=== PATIENT | female | born 1940 | race Caucasian/White ===

== ENCOUNTER → 2017-09-21 12:36 | Outpatient (CLI) | payer MEDICARE, SELFPAY ==
--- NOTE | 2017-09-21 12:50 | DI.RAD.S_ITS ---
PROCEDURE: XR KNEE RT 3V INDICATIONS: ground level fall TECHNIQUE: 3 views of the knee were acquired. COMPARISON: None. FINDINGS: Bones: Mildly displaced comminuted fracture of the mid/inferior patella. No suspicious bony lesions. Soft tissues: Moderate joint effusion. Medial and lateral compartment chondrocalcinosis. IMPRESSION: 1. Patellar fracture. 2. Knee joint effusion. 3. Chondrocalcinosis. Dictated by: Wanda Mirza M.D. on 09/21/2017 at 13:10 Approved by: Wanda Mirza M.D. on 09/21/2017 at 13:10
== END ==
PROVIDERS: Family Provider Naturopath; PCP Family Medicine; Visit Provider Physician Assistant
DX: S82.001A Unspecified fracture of right patella, initial encounter for closed fracture (principal); M25.461 Effusion, right knee; M11.261 Other chondrocalcinosis, right knee
CPT/HCPCS: 73562

== ENCOUNTER → 2017-11-20 10:01 | Outpatient (CLI) | payer MEDICARE, SELFPAY ==
[2017-11-20 10:55] LABS: Add Manual Diff / Slide Review NO; Basophils Percent Auto 0.7 % (0-2); Eosinophils Percent Auto 2.5 % (2-4); Hematocrit 39.4 % (36-46); Hemoglobin 13.3 g/dL (12.0-16.0); Lymphocytes Percent Auto 22.1 % (25-40); Mean Corpuscular HGB Conc 33.7 % (30-36); Mean Corpuscular Hemoglobin 34.5 PG (26-34); Mean Corpuscular Volume 102.5 fL (80-100); Monocytes Percent Auto 12.3 % (3-14); Neutrophils Absolute Auto 3400 /uL (3000-5900); Neutrophils Percent Auto 62.4 % (50-75); Platelet Count 154 X10^3/uL (150-400); Red Blood Cell Count 3.85 X10^6/uL (4.0-5.2); Red Cell Distribution Width 13.3 % (11.6-14.8); White Blood Cell Count 5.4 X10^3/uL (4.5-11.0)
[2017-11-20 11:01] LABS: Alanine Aminotransferase 29 IU/L (9-52); Albumin 4.2 g/dL (3.5-5.0); Albumin Globulin Ratio 1.6 (1.0-2.8); Alkaline Phosphatase 72 U/L (38-126); Aspartate Aminotransferase 32 IU/L (14-36); BUN Creatinine Ratio 36.7 (6-22); Bilirubin Total 0.5 mg/dL (0.2-1.3); Blood Urea Nitrogen 22 mg/dL (7-17); Calcium 9.7 mg/dL (8.4-10.2); Carbon Dioxide 38 mmol/L (22-32); Chloride 100 mmol/L (98-107); Estimated Glomerular Filt Rate > 60.0 mL/min (>60); Globulin 2.7 g/dL (1.7-4.1); Glucose 85 mg/dL (80-110); HEMOLYSIS < 15 (0-50); Potassium 4.1 mmol/L (3.4-5.1); Sodium 143 mmol/L (137-145); Total Protein 6.9 g/dL (6.3-8.2)
[2017-11-20 12:21] LABS: Cancer Antigen 125 6 U/mL (0-35)
== END ==
PROVIDERS: Family Provider Naturopath; Visit Provider Nurse Practitioner Gerontology
DX: C56.9 Malignant neoplasm of unspecified ovary (principal)
CPT/HCPCS: 36415; 80053; 85025; 86304

== ENCOUNTER → 2017-11-21 12:58 | Outpatient (CLI) | payer MEDICARE, SELFPAY ==
--- NOTE | 2017-11-21 13:00 | DI.CT.S_ITS ---
PROCEDURE: CT CHEST ABD PEL W CON INDICATIONS: Ovarian cancer TECHNIQUE: After the administration of oral and intravenous contrast, 5 mm thick sections acquired from the lung apices to the symphysis. 5 mm coronal and sagittal reformats were performed, with additional 7 mm coronal MIP reformats through the lungs. For radiation dose reduction, the following was used: automated exposure control, adjustment of mA and/or kV according to patient size. COMPARISON: [facility], CT, CHEST/ABD/PEL WITH CONTRAST, 06/07/2017, 10:36. FINDINGS: Image quality: Excellent. CHEST: Lungs and pleura: No acute consolidation. There is scattered subsegmental atelectasis and/or scarring No definite interval change in the left lower lobe and right middle lobe partial groundglass subpleural nodules since the prior study dated 06/07/17. No pleural effusions or pneumothorax. Central and peripheral airways appear patent and normal in caliber. Mediastinum: Heart size is normal. No pericardial effusion. No mediastinal or hilar adenopathy by size criteria. Thoracic aorta and central pulmonary arteries are normal in size. Esophagus is normal in caliber. No hiatal hernia. Chest wall: No axillary or supraclavicular adenopathy by size criteria. Thyroid gland unremarkable. ABDOMEN: Solid organs: Liver is normal in size and enhancement. Gallbladder grossly unremarkable and no rib is only a small. Biliary system is non dilated. Pancreas enhances normally. Spleen is normal in size and enhancement. No adrenal nodules. Kidneys demonstrate normal size and enhancement, without hydronephrosis. Peritoneum and bowel: Bowel loops demonstrate normal wall thickness and caliber. Surgical bowel anastomosis seen in the right abdomen. No free fluid or air. Nodes and vessels: No retroperitoneal or mesenteric adenopathy by size criteria. Aorta and inferior vena cava are normal in size. Miscellaneous: No ventral hernias. PELVIS: Genitourinary: Bladder wall thickness is normal. Miscellaneous: No inguinal hernias or adenopathy. Bones: No suspicious bony lesions. No vertebral body compression fractures. IMPRESSION: Overall, stable examination without evidence of active metastatic disease. Redemonstration of bibasilar subcentimeter, partial groundglass pulmonary nodules with no interval change. Recommend continued attention on subsequent studies. Dictated by: Nate Roman M.D. on 11/21/2017 at 16:06 Approved by: Nate Roman M.D. on 11/21/2017 at 16:31
== END ==
PROVIDERS: Family Provider Naturopath; PCP Family Medicine; Visit Provider Nurse Practitioner Gerontology
DX: C56.9 Malignant neoplasm of unspecified ovary (principal); R91.8 Other nonspecific abnormal finding of lung field; Z90.89 Acquired absence of other organs
CPT/HCPCS: 71260; 74177; Q9967

== ENCOUNTER → 2019-03-04 09:52 | Outpatient (CLI) | payer MEDICARE, SELFPAY ==
[2019-03-04 10:46] LABS: Hematocrit 40.3 % (36-46); Hemoglobin 13.9 g/dL (12.0-16.0); Mean Corpuscular HGB Conc 34.5 % (30-36); Mean Corpuscular Hemoglobin 34.3 PG (26-34); Mean Corpuscular Volume 99.4 fL (80-100); Platelet Count 152 X10^3/uL (150-400); Red Blood Cell Count 4.06 X10^6/uL (4.0-5.2); Red Cell Distribution Width 12.4 % (11.6-14.8); White Blood Cell Count 5.1 X10^3/uL (4.5-11.0)
[2019-03-04 11:12] LABS: Alanine Aminotransferase 23 IU/L (<35); Albumin 4.3 g/dL (3.5-5.0); Albumin Globulin Ratio 1.7 (1.0-2.8); Alkaline Phosphatase 82 U/L (38-126); Aspartate Aminotransferase 35 IU/L (14-36); BUN Creatinine Ratio 35.7 (6-22); Bilirubin Total 0.6 mg/dL (0.2-1.3); Blood Urea Nitrogen 25 mg/dL (7-17); Calcium 9.8 mg/dL (8.4-10.2); Carbon Dioxide 35 mmol/L (22-32); Chloride 99 mmol/L (98-107); Cholesterol 215 mg/dL (140-199); Estimated Glomerular Filt Rate > 60.0 mL/min (>60); Globulin 2.6 g/dL (1.7-4.1); Glucose 79 mg/dL (80-110); HDL Cholesterol 91 mg/dL (40-60); HEMOLYSIS < 15 (0-50); LDL Cholesterol Calculated 110 mg/dL (<100); Potassium 5.1 mmol/L (3.4-5.1); Sodium 139 mmol/L (137-145); Total Protein 6.9 g/dL (6.3-8.2); Triglycerides 69 mg/dL (35-150)
[2019-03-04 11:41] LABS: TSH w/ Reflex to FT4 3.89 uIU/mL (0.47-4.68)
[2019-03-04 12:01] LABS: Vitamin B12 995 pg/mL (239-931)
== END ==
PROVIDERS: PCP Internal Medicine; Visit Provider Internal Medicine
DX: Z08 Encounter for follow-up examination after completed treatment for malignant neoplasm (principal); R41.3 Other amnesia; E78.5 Hyperlipidemia, unspecified
CPT/HCPCS: 36415; 80053; 80061; 82607; 84443; 85027; 86592

== ENCOUNTER → 2019-03-13 12:37 | Outpatient (CLI) | payer MEDICARE, SELFPAY ==
--- NOTE | 2019-03-13 | DI.MRI.S_ITS ---
PROCEDURE: MR HEAD/BRAIN WO CON INDICATIONS: Unspecified dementia with behavioral disturbance TECHNIQUE: Non-contrast axial T1 spin echo, axial T2 fast spin echo, sagittal and axial FLAIR, coronal T2 fast spin echo, axial gradient echo, axial diffusion and ADC through the brain. COMPARISON: None. FINDINGS: Image quality: Excellent. CSF spaces: Ventricles appear symmetric in size and shape. Basal cisterns are patent. No extra-axial fluid collections. Brain: No intracranial bleeds or mass effects. There is cerebral volume loss for age. There are periventricular and deep white matter chronic small vessel ischemic changes. Brainstem appears normal. Diffusion-weighted images show no acute ischemic insults. No chronic ischemic insults. Normal intravascular flow voids are present. Skull and face: Calvarial bone marrow is normal in signal. Orbits are normal. Sinuses: There is mild maxillary sinus mucosal thickening bilaterally. Sinuses and mastoids are otherwise clear. IMPRESSION: 1. Mild volume loss and small vessel ischemic disease. 2. No acute process. No recent infarct. 3. Mild maxillary sinus mucosal disease bilaterally. Dictated by: Wanda Mirza M.D. on 03/13/2019 at 14:51 Approved by: Wanda Mirza M.D. on 03/13/2019 at 14:52
== END ==
PROVIDERS: PCP Internal Medicine; Visit Provider Internal Medicine
DX: F03.91 Unspecified dementia, unspecified severity, with behavioral disturbance (principal); J32.0 Chronic maxillary sinusitis
CPT/HCPCS: 70551

== ENCOUNTER → 2019-04-20 12:12 | Outpatient (CLI) | payer MEDICARE, SELFPAY ==
--- NOTE | 2019-04-20 12:15 | DI.MG.S_ITS ---
BILATERAL DIGITAL SCREENING MAMMOGRAM 3D/2D WITH CAD: 04/20/2019 CLINICAL: Routine screening. Family history of breast cancer. Comparison is made to exams dated: 04/19/2017 mammogram, 01/07/2015 mammogram, and 11/26/2012 mammogram - [facility]. The tissue of both breasts is heterogeneously dense. This may lower the sensitivity of mammography. Current study was also evaluated with a Computer Aided Detection (CAD) system. There are benign calcifications in both breasts. No significant masses, calcifications, or other findings are seen in either breast. There has been no significant interval change. IMPRESSION: There is no mammographic evidence of malignancy. A 1 year screening mammogram is recommended. This exam was interpreted at Station ID: [id number]. NOTE: For mammograms, a report in lay terms will be sent to the patient. Approximately 15% of breast malignancies will not be visualized mammographically. In the management of a palpable breast mass, a negative mammogram must not discourage biopsy of a clinically suspicious lesion. Electronically Signed By: Mike amaya/ariadne:04/20/2019 19:02:04 letter sent: Normal Exam ACR BI-RADS Category 2: Benign Finding(s) 3342F
== END ==
PROVIDERS: PCP Internal Medicine; Referring Provider Internal Medicine; Visit Provider Internal Medicine
DX: Z12.31 Encounter for screening mammogram for malignant neoplasm of breast (principal); Z80.3 Family history of malignant neoplasm of breast
CPT/HCPCS: 77063; 77067

== ENCOUNTER → 2019-07-10 12:34 | Outpatient (CLI) | payer MEDICARE, SELFPAY ==
[2019-07-10 12:58] LABS: Add Manual Diff / Slide Review NO; Basophils Absolute Auto 100 /uL (0-100); Basophils Percent Auto 0.9 % (0-2); Eosinophils Absolute Auto 200 /uL (0-450); Hematocrit 40.4 % (36-46); Hemoglobin 14.2 g/dL (12.0-16.0); Lymphocytes Absolute Auto 800 /uL (1100-4500); Lymphocytes Percent Auto 13.6 % (25-40); Mean Corpuscular HGB Conc 35.1 % (30-36); Mean Corpuscular Hemoglobin 34.6 PG (26-34); Mean Corpuscular Volume 98.4 fL (80-100); Monocytes Absolute Auto 800 /uL (0-900); Monocytes Percent Auto 14.3 % (3-14); Neutrophils Absolute Auto 3900 /uL (1500-7000); Neutrophils Percent Auto 68.2 % (50-75); Platelet Count 157 X10^3/uL (150-400); Red Cell Distribution Width 12.8 % (11.6-14.8); White Blood Cell Count 5.7 X10^3/uL (4.5-11.0)
[2019-07-10 13:05] LABS: Alanine Aminotransferase 20 IU/L (<35); Albumin 4.2 g/dL (3.5-5.0); Albumin Globulin Ratio 1.4 (1.0-2.8); Alkaline Phosphatase 72 U/L (38-126); Aspartate Aminotransferase 31 IU/L (14-36); BUN Creatinine Ratio 39.7 (6-22); Bilirubin Total 0.4 mg/dL (0.2-1.3); Blood Urea Nitrogen 25 mg/dL (7-17); Calcium 9.5 mg/dL (8.4-10.2); Carbon Dioxide 30 mmol/L (22-32); Chloride 101 mmol/L (98-107); Estimated Glomerular Filt Rate > 60.0 mL/min (>60); Glucose 103 mg/dL (80-110); HEMOLYSIS < 15 (0-50); Potassium 4.6 mmol/L (3.4-5.1); Sodium 138 mmol/L (137-145); Total Protein 7.2 g/dL (6.3-8.2)
== END ==
PROVIDERS: PCP Internal Medicine; Referring Provider Internal Medicine Hematology & Oncology; Visit Provider Internal Medicine Hematology & Oncology
DX: C56.9 Malignant neoplasm of unspecified ovary (principal)
CPT/HCPCS: 36415; 80053; 85025; 86304

== ENCOUNTER → 2019-07-22 12:36 | Outpatient (CLI) | payer MEDICARE, SELFPAY ==
--- NOTE | 2019-07-22 12:39 | DI.RAD.S_ITS ---
PROCEDURE: FL CATHETER PATENCY COMPARISON: None. INDICATIONS: No blood return from port FINDINGS: Iodinated nonionic contrast was utilized through the Port-A-Cath port, with free antegrade flow but absence of retrograde aspiration. The catheter shows no evidence of fracture or leakage, the Port-A-Cath hub also appears normal over the course of this study. IMPRESSION: Normal positioning of the Port-A-Cath tip, free antegrade flow of contrast was observed, no leakage or evidence of catheter fracture is found. The etiology of the inability to aspirate through this pathway likely is a fibrin sheath that has developed at the tip mechanically producing a one way valve. Dictated by: Awais Youngblood M.D. on 07/22/2019 at 13:59 Approved by: Awais Youngblood M.D. on 07/22/2019 at 14:00
== END ==
PROVIDERS: PCP Internal Medicine; Referring Provider Internal Medicine Hematology & Oncology; Visit Provider Internal Medicine Hematology & Oncology
DX: Z45.2 Encounter for adjustment and management of vascular access device (principal); C56.9 Malignant neoplasm of unspecified ovary
CPT/HCPCS: 76000

== ENCOUNTER → 2019-08-29 15:53 | Outpatient (CLI) | payer MEDICARE, SELFPAY ==
[2019-08-30 22:56] LABS: COVID19 Sendout Not Detected (Not Detect)
== END ==
PROVIDERS: PCP Internal Medicine; Visit Provider Physician Assistant
DX: Z01.812 Encounter for preprocedural laboratory examination (principal)
CPT/HCPCS: 87635

== ENCOUNTER 2019-09-01 08:39 | Day surgery (SDC) | payer MEDICARE, SELFPAY ==
[2019-08-25 08:43] VITALS: BMI 17.3
[2019-09-01] VITALS (11 sets, daily range): BP systolic 87–141; BP diastolic 45–67; PULSE 54–62; RESP 10–20; TEMP 36.1–36.6; O2SAT 56–98; BMI 17.3
[2019-09-01] MEDS: LACTATED RINGERS 1,000 ML 100 ML IV (09:23)
--- NOTE | 2019-09-01 10:01 | PM.PREOP ---
Pre-operative Note COVID-19 COVID-19 status: Negative Interval Note History & Physical reviewed/Exam performed by Physician: Yes Changes to H&P: No
[2019-09-01] MEDS: CEFAZOLIN 2 GM/100 ML FROZ.PIGGY IV (10:10)
--- NOTE | 2019-09-01 10:36 | SUR.OPER ---
Supine on padded OR bed, head on pillow, arm padded and tucked at side, legs uncrossed, safety belt at thigh, tape over blanket over lower legs .
[2019-09-01] MEDS: BUPIVACAINE 0.25% (PF) VIAL 30 ML INJ (10:46)
--- NOTE | 2019-09-01 10:54 | PM.OP.1 ---
Operative Date/Time/Diagnoses Date of procedure: 09/01/19 Time of procedure: 10:54 Pre-op diagnosis: ovarian cancer Post-op diagnosis: same Procedure & Clinicians Procedure: removal port a cath Same procedure as scheduled: Yes Indications: 78 y.o woman with ovarian cancer with a port a cath now no longer functioning Surgeon: Bebeto Chahal Anesthesia Type: General Operative Notes Findings: intact catheter Estimated Blood Loss (mL): 10 Procedure in detail: Patient was brought to the operating room placed supine on table. Bilateral lower extremity compressive devices were applied. General anesthesia was induced and she was intubated with an LMA. She was then prepped and draped in usual sterile fashion. Time-out was performed ensure the correct patient procedure necessary equipment within the operating room. She received 2 g of Ancef prior to incision. Skin was infiltrated with 0.25% bupivicaine. Incision made in left chest wall through prior scar. Port was carefully dissected out from the chest wall adhesions. The entry site of the catheter was closd with vicryl suture in figure 8 fashion as the catheter was withdrawn. The catheter was inspected and intact. Subcutaneous pocket was irrigated and checked for hemostasis. The subcutaneous tissues were reapproximated with the 3 0 Vicryl and then skin closed with 4-0 Monocryl. The skin was sealed with Dermabond. Patient tolerated procedure well. The sponge and instrument count at the end operation was correct. Patient emerged from general anesthesia was extubated and taken to the postoperative care unit in stable condition Complications: none Post-operative Condition: stable Disposition: same day surgery
--- NOTE | 2019-09-01 16:02 | SUR.PHASEII ---
Late entry: Pt ready to go, dressed, ride called and pt left in stable condition.
== END 2019-09-01 12:25 | disposition home or self-care (01) ==
PROVIDERS: PCP Internal Medicine; Referring Provider Surgery; Visit Provider Surgery
PROC: (CPT 36590; principal; 2019-09-01 09:45)
DX: Z45.2 Encounter for adjustment and management of vascular access device (principal); Z85.43 Personal history of malignant neoplasm of ovary
CPT/HCPCS: 36590; J0690; J1100; J2405; J2704; J3010

== ENCOUNTER → 2019-10-06 14:26 | Outpatient (CLI) | payer MEDICARE, SELFPAY ==
[2019-10-07 09:55] LABS: COVID19 Sendout Not Detected (Not Detect)
== END ==
PROVIDERS: PCP Internal Medicine; Visit Provider Physician Assistant
DX: Z11.59 Encounter for screening for other viral diseases (principal)
CPT/HCPCS: 87635

== ENCOUNTER → 2020-03-15 14:15 | Outpatient (CLI) | payer OTHER, SELFPAY | PROVIDERS: PCP Internal Medicine; Referring Provider Internal Medicine; Visit Provider Internal Medicine | DX: M85.851 Other specified disorders of bone density and structure, right thigh (principal); Z78.0 Asymptomatic menopausal state; Z85.43 Personal history of malignant neoplasm of ovary; Z82.62 Family history of osteoporosis; Z87.891 Personal history of nicotine dependence | CPT/HCPCS: 77080 ==

== ENCOUNTER → 2020-03-31 14:46 | Outpatient (CLI) | payer OTHER, SELFPAY ==
[2020-03-31 16:44] LABS: C-Reactive Protein Quant < 0.5 mg/dL (<1.0)
== END ==
PROVIDERS: PCP Internal Medicine; Referring Provider Internal Medicine; Visit Provider Internal Medicine
DX: E78.5 Hyperlipidemia, unspecified (principal)
CPT/HCPCS: 36415; 86140

== ENCOUNTER → 2020-05-17 16:18 | Outpatient (CLI) | payer OTHER, SELFPAY | PROVIDERS: PCP Internal Medicine; Visit Provider Physician Assistant | DX: R30.9 Painful micturition, unspecified (principal) | CPT/HCPCS: 87086 ==

== ENCOUNTER → 2020-05-26 16:48 | Outpatient (CLI) | payer OTHER, SELFPAY ==
--- NOTE | 2020-05-26 16:49 | DI.MG.S_ITS ---
BILATERAL DIGITAL SCREENING MAMMOGRAM 3D/2D WITH CAD: 05/26/2020 CLINICAL: Routine screening. Family history of breast cancer. Comparison is made to exams dated: 04/20/2019 mammogram, 04/19/2017 mammogram, 01/07/2015 mammogram, and 11/26/2012 mammogram - [facility]. The tissue of both breasts is heterogeneously dense. This may lower the sensitivity of mammography. Current study was also evaluated with a Computer Aided Detection (CAD) system. There are benign calcifications in both breasts. No significant masses, calcifications, or other findings are seen in either breast. There has been no significant interval change. IMPRESSION: BENIGN There is no mammographic evidence of malignancy. A 1 year screening mammogram is recommended. This exam was interpreted at Station ID: [id number]. NOTE: For mammograms, a report in lay terms will be sent to the patient. Approximately 15% of breast malignancies will not be visualized mammographically. In the management of a palpable breast mass, a negative mammogram must not discourage biopsy of a clinically suspicious lesion. Electronically Signed By: Mike amaya/ariadne:05/27/2020 07:26:03 letter sent: Normal Exam ACR BI-RADS Category 2: Benign Finding(s) 3342F
== END ==
PROVIDERS: PCP Internal Medicine; Referring Provider Internal Medicine; Visit Provider Internal Medicine
DX: Z12.31 Encounter for screening mammogram for malignant neoplasm of breast (principal); Z80.3 Family history of malignant neoplasm of breast
CPT/HCPCS: 77063; 77067

== ENCOUNTER → 2020-06-08 13:41 | Outpatient (CLI) | payer OTHER, SELFPAY ==
[2020-06-08 15:50] LABS: COVID19 -Nasal RAPID Negative (Negative)
== END ==
PROVIDERS: PCP Internal Medicine; Visit Provider Family Medicine Sleep Medicine
DX: Z20.822 Contact with and (suspected) exposure to COVID-19 (principal)
CPT/HCPCS: 87635; C9803

== ENCOUNTER → 2021-05-29 15:00 | Outpatient (CLI) | payer OTHER, SELFPAY ==
--- NOTE | 2021-05-29 15:02 | DI.MG.S_ITS ---
BILATERAL DIGITAL SCREENING MAMMOGRAM 3D/2D WITH CAD: 05/29/2021 CLINICAL: Routine screening. Family history of breast cancer. Comparison is made to exams dated: 05/26/2020 mammogram, 04/20/2019 mammogram, and 04/19/2017 mammogram - [facility]. The tissue of both breasts is heterogeneously dense. This may lower the sensitivity of mammography. Current study was also evaluated with a Computer Aided Detection (CAD) system. There are benign calcifications in both breasts. No significant masses, calcifications, or other findings are seen in either breast. There has been no significant interval change. IMPRESSION: BENIGN There is no mammographic evidence of malignancy. A 1 year screening mammogram is recommended. This exam was interpreted at Station ID: [id number]. NOTE: For mammograms, a report in lay terms will be sent to the patient. Approximately 15% of breast malignancies will not be visualized mammographically. In the management of a palpable breast mass, a negative mammogram must not discourage biopsy of a clinically suspicious lesion. Electronically Signed By: Edel silva/ariadne:05/30/2021 08:02:38 letter sent: Normal Exam ACR BI-RADS Category 2: Benign Finding(s) 3342F
== END ==
PROVIDERS: PCP Internal Medicine; Referring Provider Internal Medicine; Visit Provider Internal Medicine
DX: Z12.31 Encounter for screening mammogram for malignant neoplasm of breast (principal); Z80.3 Family history of malignant neoplasm of breast
CPT/HCPCS: 77063; 77067

== ENCOUNTER → 2022-04-05 17:49 | Outpatient (CLI) | payer OTHER, SELFPAY ==
--- NOTE | 2022-04-05 17:54 | DI.RAD.S_ITS ---
PROCEDURE: XR HAND RT MIN 3V INDICATIONS: Middle Finger/hand pain TECHNIQUE: 3 views of the hand(s) acquired. COMPARISON: None. FINDINGS: Bones: No fractures or dislocations. Osteoarthritic changes are noted throughout right hand and wrist. No bony erosive changes. Carpal bones are normally aligned. No suspicious bony lesions. Soft tissues: Soft tissue swelling over volar aspect of 3rd proximal phalangeal shaft and 3rd PIP joint is seen. No suspicious soft tissue calcifications. IMPRESSION: No acute right hand fracture or dislocation. Soft tissue swelling over volar aspect of 3rd digit as above. No gross bony erosive changes. 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 Dictated by: Bruno Conde M.D. on 04/06/2022 at 8:52 Approved by: Bruno Conde M.D. on 04/06/2022 at 8:53
== END ==
PROVIDERS: Referring Provider Nurse Practitioner Family; Visit Provider Nurse Practitioner Family
DX: M19.041 Primary osteoarthritis, right hand (principal); M19.031 Primary osteoarthritis, right wrist; M79.89 Other specified soft tissue disorders
CPT/HCPCS: 73130

== ENCOUNTER → 2022-04-06 13:36 | Outpatient (CLI) | payer OTHER, SELFPAY ==
--- NOTE | 2022-04-06 | DI.MG.S_ITS ---
UNILATERAL RIGHT DIGITAL DIAGNOSTIC MAMMOGRAM 3D/2D: 04/06/2022 CLINICAL: Right breast lump. Comparison is made to exams dated: 05/29/2021 mammogram, 05/26/2020 mammogram, 04/20/2019 mammogram, and 04/19/2017 mammogram - [facility]. The right breast is heterogeneously dense, which may obscure small masses (category c / 51-75% glandular tissue). No significant masses, calcifications, or other findings are seen in the breast. IMPRESSION: INCOMPLETE: NEEDS ADDITIONAL IMAGING EVALUATION There is no abnormality seen in the right breast to correspond with the palpable abnormality, however, ultrasound is recommended. Based on the Tyrer Cuzick model (a risk assessment model) the patient's lifetime risk is 2.2% and her 10 year risk is 0.0%. According to the ACR, ACS, and NCCN guidelines, an annual breast MRI exam along with mammogram is recommended if the patient's lifetime risk is 20% or greater. This exam was interpreted at Station ID: [id number]. NOTE: For mammograms, a report in lay terms will be sent to the patient. Approximately 15% of breast malignancies will not be visualized mammographically. In the management of a palpable breast mass, a negative mammogram must not discourage biopsy of a clinically suspicious lesion. Electronically Signed By: Serafin Motta M.D. ar/:04/06/2022 16:08:35 ACR BI-RADS Category 0: Incomplete 3340F
--- NOTE | 2022-04-06 | DI.US.S_ITS ---
LIMITED ULTRASOUND OF RIGHT BREAST: 04/06/2022 CLINICAL: Palpable right breast lump by physician. Comparison is made to exams dated: 04/06/2022 mammogram, 05/29/2021 mammogram, 05/26/2020 mammogram, 04/20/2019 mammogram, and 04/19/2017 mammogram - [facility]. Real-time ultrasound of the right breast 12 o'clock region was performed. Perry scale images of the real-time examination were reviewed. No significant abnormalities were seen sonographically in the right breast. IMPRESSION: NEGATIVE There is no sonographic evidence of malignancy. There is no abnormality seen in the right breast to correspond with the palpable abnormality, however, clinical followup is recommended. Return to annual mammogram screening schedule is recommended. Future imaging is recommended as follows: 05/30/2022 screening mammogram. This exam was interpreted at Station ID: [id number]. Electronically Signed By: Serafin graham/ariadne:04/06/2022 16:10:06 letter sent: Clinical Evaluation Ultrasound BI-RADS: 1 Negative
== END ==
PROVIDERS: Referring Provider Internal Medicine; Visit Provider Internal Medicine
DX: N63.11 Unspecified lump in the right breast, upper outer quadrant (principal); R92.2 Inconclusive mammogram
CPT/HCPCS: 76642; 77065; G0279

== ENCOUNTER → 2022-06-22 13:08 | Outpatient (CLI) | payer OTHER, SELFPAY | PROVIDERS: Visit Provider Registered Nurse | DX: R35.0 Frequency of micturition (principal); N39.0 Urinary tract infection, site not specified | CPT/HCPCS: 87086; 87210 ==

== ENCOUNTER 2022-08-30 18:44 | Emergency (ER) | payer OTHER, SELFPAY ==
[2022-08-30 19:30] VITALS: BP 187/80; PULSE 60; RESP 18; TEMP 36.4; O2SAT 98; BMI 18.6
--- NOTE | 2022-08-30 19:39 | DI.RAD.S_ITS ---
PROCEDURE: XR NASAL BONES MIN 3V INDICATIONS: fell and hit face on pavement TECHNIQUE: 3 views of the nasal bones acquired. COMPARISON: None. FINDINGS: Bones: No displaced fracture identified.. There is slight rightward deviation of the nasal septum. Normal nasociliary nerve grooves are noted. Soft tissues: No suspicious soft tissue calcifications. IMPRESSION: 1. No displaced nasal bone fracture identified. Dictated by: Michael Abdi M.D. on 08/30/2022 at 21:00 Approved by: Michael Abdi M.D. on 08/30/2022 at 21:05
--- NOTE | 2022-08-30 19:40 | DI.RAD.S_ITS ---
PROCEDURE: XR WRIST RT MIN 3V INDICATIONS: fell and injured wrist TECHNIQUE: 4 views of the wrist were acquired. COMPARISON: None. FINDINGS: Bones: No displaced fractures or dislocations. No suspicious bony lesions. Scaphoid view: The scaphoid appears intact. Soft tissues: No suspicious soft tissue calcifications. IMPRESSION: 1. No displaced fracture or dislocation. Dictated by: Michael Abdi M.D. on 08/30/2022 at 21:05 Approved by: Michael Abdi M.D. on 08/30/2022 at 21:06
[2022-08-30 21:40] VITALS: PULSE 68; O2SAT 99
[2022-08-30 21:41] VITALS: BP 175/74; PULSE 66; O2SAT 98
--- NOTE | 2022-08-30 21:55 | ED_ITS ---
HPI - General Adult General Chief complaint: Trauma Stated complaint: Fall, No thinners Time Seen by Provider: 08/30/22 21:41 Source: patient Mode of arrival: Wheelchair History of Present Illness HPI narrative: Patient is an 81-year-old female who is here for evaluation of injuries that she sustained when she tripped over an uneven sidewalk falling forward and hitting her face on the ground. There was no loss of consciousness. She is not on blood thinners. She sustained some abrasions to her face in has wrist discomfort. She has been able to get up and walk afterwards. No neck pain. No vision changes. No dental discomfort. She does have a cut to her upper lip. Related Data Home Medications Medication Instructions Recorded Confirmed varsha (Zingiber officinalis) 550 1 cap PO BID ##0 09/11/16 01/19/21 mg capsule cranberry 500 mg capsule 500 mg PO DAILY 08/03/19 01/19/21 Bladder Wrack 1 tab PO DAILY 04/19/20 01/19/21 ashwagantha 1 tab PO DAILY 04/19/20 01/19/21 Brain Formula 1 tab PO BID 10/07/20 01/19/21 ascorbic acid (vitamin C) 500 mg 500 mg PO BID ##0 10/07/20 01/18/22 tablet cholecalciferol (vitamin D3) 25 25 mcg PO BID 10/07/20 01/19/21 mcg (1,000 unit) chewable tablet (Vitamin D3) coenzyme Q10 30 mg capsule (CoQ-10) 100 mg PO DAILY #0 caps 10/07/20 01/19/21 jlasisszwqsb-uwxjovfl-xcfqsa 2 tab PO DAILY 10/07/20 01/19/21 tablet (Multivitamin 50 Plus tablet) escitalopram oxalate 10 mg tablet 10 mg PO DAILY 01/19/21 01/19/21 (Lexapro) turmeric (bulk) 95 % powder 1 ea miscellaneous DAILY 01/19/21 01/19/21 (Curcumin) 3B Cande 05/16/21 05/16/21 [place] 2 cap PO DAILY 05/16/21 [CALMS FORTE] 6 tab PO DAILY ##0 05/16/21 melatonin 5 mg tablet 20 mg PO BEDTIME 05/16/21 05/16/21 rosuvastatin 10 mg tablet (Crestor) 10 mg PO DAILY 05/16/21 05/16/21 3B CANDE 11/15/21 11/15/21 Allergies Allergy/AdvReac Type Severity Reaction Status Date / Time ciprofloxacin [From CIPRO] Allergy Mild DIARRHEA Verified 05/16/21 10:42 Sulfa (Sulfonamide Allergy Mild IRRABILITY Verified 05/16/21 10:42 Antibiotics) [SULFA (SULFONAMIDE ANTIBIOTICS)] lorazepam [LORAZEPAM] AdvReac Unknown N/V Verified 05/16/21 10:42 Review of Systems Constitutional Constitutional: Reports system reviewed and no additional complaints, except as documented Eyes Eyes: Reports system reviewed and no additional complaints, except as documented ENT Ears, Nose, Mouth, and Throat: Reports system reviewed and no additional complaints, except as documented Integumentary/Breasts Skin/Breast: Reports system reviewed and no additional complaints, except as documented Neurologic Neurologic: Reports system reviewed and no additional complaints, except as documented Hematologic/Lymphatic On Anticoagulants: No Patient History Medical History Arthritis Disseminated ovarian cancer Dysuria Edema Excessive daytime sleepiness Fatigue due to sleep pattern disturbance History of anemia History of ovarian cancer Hypoglycemia Insomnia due to medical condition Malignant ascites (01/09/17) Mild cognitive disorder Obstructive sleep apnea, adult Pneumonia Restless legs syndrome (RLS) Surgical History History of cataract removal with insertion of prosthetic lens History of cataract removal with insertion of prosthetic lens History of surgery (2018) History of tonsillectomy Status post hysterectomy Family History Brother Age: 82 Precancerous skin lesion Uncomplicated asthma, unspecified asthma severity Insomnia Grandmother Osteoporosis Mother Cancer Heart disease Essential hypertension High cholesterol Mental health problem Hypertension Depression Anxiety Dementia Father Heart disease Social History household members: spouse Smoking Status: Former smoker alcohol intake: current Smoking Status: Former smoker alcohol intake frequency: 0-2 drinks per day Substance Use Type: does not use Exam Initial Vital Signs Initial Vital Signs: Vital Signs Temperature 97.5 F L 08/30/22 19:30 Pulse Rate 60 08/30/22 19:30 Respiratory Rate 18 08/30/22 19:30 Blood Pressure 187/80 H 08/30/22 19:30 Pulse Oximetry 98 08/30/22 19:30 Oxygen Delivery Method Room Air 08/30/22 19:30 HENMT Nose: nares normal, No epistaxis and No nasal discharge Face and sinus: abrasion Mouth: tongue normal and lip abnormal (Cut to upper lip) Teeth and gingiva: dentition normal Eyes Other: Contusion around right eye Resp Effort & Inspection: normal respiratory effort Cardio Rate: regular rate Back/Spine/Pelvis Cervical Spine: No cervical spinal tenderness Skin Other: Patient with multiple abrasions on the right side of her face to include around her right eye and on the bridge of her nose also on her chin. She also has bruising to her right wrist. Neuro General: patient alert, patient awake, patient oriented x3 and moves all extremities Extrem Other: Shoulder and elbow unremarkable. She can flex and extend her right wrist. Her pelvis is stable. Lower extremities unremarkable. Procedures Laceration Repair Laceration 1: Site: lip Side (If applicable): right Size (cm): 0.5 Description: linear Depth: simple, single layer Local Anesthetic: lidocaine 1% Amount of anesthesia used (mL): 2 Pre-repair: wound explored Skin layer closed with: other (Chromic) Skin layer suture size: 5-0 Number of sutures: 2 Technique: simple, interrupted Scores GCS [place] coma scale eye opening: Spontaneous [place] coma scale verbal response: Orientated Dary coma scale motor response: Obey commands [place] coma scale total score: 15 Nexus Score for C-Spine Focal Neurologic deficit present: No Midline spinal tenderness present: No Altered level of conciousness present: No Intoxication present: No Distracting Injury Present: No Nexus Criteria for C-spine: 0 Course Orders Ordered: ED Orders 08/30/22 19:39 XR nasal bones min 3V Stat 08/30/22 19:40 XR wrist RT min 3V Stat Vital Signs Vital signs: Vital Signs - 8 hr 08/30/22 19:30 08/30/22 21:40 08/30/22 21:41 Temperature 97.5 F L Pulse Rate 60 68 Respiratory Rate 18 Blood Pressure 187/80 H 175/74 H Pulse Oximetry 98 99 Oxygen Delivery Method Room Air 08/30/22 21:41 08/30/22 22:00 Temperature Pulse Rate 66 64 Respiratory Rate Blood Pressure Pulse Oximetry 98 98 Oxygen Delivery Method Medical Decision Making Imaging Data Nasal bone x-ray: Radiologist's Impression: PROCEDURE:? XR NASAL BONES MIN 3V ? INDICATIONS:? fell and hit face on pavement ? TECHNIQUE:? 3 views of the nasal bones acquired.? ? COMPARISON:? None. ? FINDINGS:? ? Bones:? No displaced fracture identified..? There is slight rightward deviation of the nasal septum.? Normal nasociliary nerve grooves are noted.? ? Soft tissues:? No suspicious soft tissue calcifications.? ? IMPRESSION:? ? 1. No displaced nasal bone fracture identified. Extremity x-ray #1: Radiologist's Impression: PROCEDURE:? XR WRIST RT MIN 3V ? INDICATIONS: fell and injured wrist ? TECHNIQUE:? 4 views of the wrist were acquired.? ? COMPARISON:? None. ? FINDINGS:? ? Bones:? No displaced fractures or dislocations.? No suspicious bony lesions.? ? Scaphoid view:? The scaphoid appears intact. ? Soft tissues:? No suspicious soft tissue calcifications.? ? IMPRESSION:? ? 1. No displaced fracture or dislocation. MDM Narrative Medical decision making narrative: This was clearly a mechanical fall. Her C-spine was cleared by nexus criteria. X-rays of her wrist in her nose show no fractures. She does have a cut on her upper lip that does not cross the [place]mil[place] border. It was closed with 2 stitches. The rest of the abrasions on her face knee no specific intervention here in the ER. No other injuries found on the exam nor reported by the patient. Discharge patient with care instructions return precautions. She expressed understanding and agreement. Discharge Plan Departure Patient Disposition: Home Clinical Impression: Sprain of right wrist, Contusion of face, Abrasion of face, Laceration of lip Instructions: Contusion, DI for Abrasion Activity Restrictions/Additional Instructions: You can put topical antibiotic ointment over the abrasions on your face. I would also recommend using ice. The wrist splint as for your comfort. They stitches that were placed in your lip are absorbable and should come out on their own within the next week. Return to the emergency department for new or worsening symptoms. Prescriptions: No Action varsha (Zingiber officinalis) 550 mg Capsule 1 cap PO BID Qty: 0 ascorbic acid (vitamin C) 500 mg tablet 500 mg PO BID Qty: 0 coenzyme Q10 [CoQ-10] 30 mg capsule 100 mg PO DAILY Qty: 0 [CALMS FORTE] 6 tab PO DAILY Qty: 0 cranberry 500 mg Capsule 500 mg PO DAILY escitalopram oxalate [Lexapro] 10 mg Tablet 10 mg PO DAILY Curcumin 95 % Powder 1 ea MISCELLANEOUS DAILY melatonin 5 mg tablet 20 mg PO BEDTIME [place] 2 cap PO DAILY cholecalciferol (vitamin D3) [Vitamin D3] 25 mcg (1,000 unit) tablet,chewable 25 mcg PO BID Multivitamin 50 Plus Tablet 2 tab PO DAILY Bladder Wrack 600 mg 1 tab PO DAILY ashwagantha 470 mg 1 tab PO DAILY Brain Formula 1 tab PO BID rosuvastatin [Crestor] 10 mg tablet 10 mg PO DAILY (DME) 3B Cande See Rx Instructions .ROUTE .MEDSUPPLY Rx Instructions: CPAP Min: 5 Max: 15 (DME) 3B CANDE See Rx Instructions .ROUTE .MEDSUPPLY Rx Instructions: MIN; 7 MAX: 14 DME: ROTECH JUDY: 03/02/21 Referrals: Hamzah,Doctor, MD [Primary Care Provider] - Stand Alone Forms: Patient Portal/API
[2022-08-30 22:00] VITALS: PULSE 64; O2SAT 98
== END 2022-08-30 22:30 | disposition home or self-care (01) ==
PROVIDERS: Emergency Provider Emergency Medicine
DX: S01.511A Laceration without foreign body of lip, initial encounter (principal); S00.83XA Contusion of other part of head, initial encounter; S63.501A Unspecified sprain of right wrist, initial encounter; S00.81XA Abrasion of other part of head, initial encounter; W01.0XXA Fall on same level from slipping, tripping and stumbling without subsequent striking against object, initial encounter
CPT/HCPCS: 12011; 70160; 73110; 99283

== ENCOUNTER → 2023-04-12 12:15 | Outpatient (CLI) | payer OTHER, SELFPAY ==
--- NOTE | 2023-04-12 12:17 | DI.RAD.S_ITS ---
Bone Density Report Name: MIRANDA BLACK Age: 82 Sex: Female Ethnicity: White Date of : 1940 Indication: postmenopausal; screening for osteoporosis; Referring Provider: MOISE HERNANDEZ Study: Bone densitometry was performed. Exam Date: April 12, 2023 Accession number: [id number] Bone Density: Region BMD T-score Z-score Classification AP Spine(L1-L4) 1.080 0.3 3.2 Normal Femoral Neck (Left) 0.723 -1.1 1.4 Osteopenia Total Hip (Left) 0.864 -0.6 1.7 Normal Femoral Neck (Right) 0.731 -1.1 1.4 Osteopenia Total Hip (Right) 0.842 -0.8 1.5 Normal Total Hip Mean 0.853 -0.7 1.6 Normal World Health Organization criteria for BMD impression classify patients as: Normal (T-score at or above -1.0), Osteopenia (T-score between -1.0 and -2.5), or Osteoporosis (T-score at or below -2.5). 10-year Fracture Risk(1): Major Osteoporotic Fracture 10% Hip Fracture 2.5% Reported Risk Factors: [place] (), Neck BMD=0.723, BMI=20.0 (1) FRAX(R) Version 3.08. Fracture probability calculated for an untreated patient. Fracture probability may be lower if the patient has received treatment. Previous Exams: -- Region Exam Age BMD T-score BMD Change BMD Change Date g/cm2 vs Baseline vs Previous -- AP Spine (L1-L4) 04/12/2023 82 1.080 0.3 0.008 (0.8%)# -0.041 (-3.7%)# 03/15/2020 79 1.121 0.7 0.049 (4.6%)* 0.040 (3.7%)* 01/19/2016 75 1.082 0.3 0.010 (0.9%) 0.013 (1.2%) 12/04/2012 72 1.068 0.2 -0.003 (-0.3%) 0.033 (3.2%)* 01/19/2010 69 1.035 -0.1 -0.037 (-3.4%)* -0.037 (-3.4%)* 03/01/2004 63 1.072 0.2 Total Hip(Left) 04/12/2023 82 0.864 -0.6 -0.082 (-8.7%)# 0.017 (2.0%)# 03/15/2020 79 0.848 -0.8 -0.099 (-10.4%)* -0.044 (-4.9%)* 01/19/2016 75 0.892 -0.4 -0.055 (-5.8%)* -0.014 (-1.6%) 12/04/2012 72 0.906 -0.3 -0.040 (-4.3%)* 0.020 (2.3%) 01/19/2010 69 0.886 -0.5 -0.061 (-6.4%)* -0.061 (-6.4%)* 03/01/2004 63 0.947 0.0 Total Hip(Right) 04/12/2023 82 0.842 -0.8 -0.076 (-8.3%)# 0.019 (2.3%)# 03/15/2020 79 0.823 -1.0 -0.095 (-10.4%)* -0.054 (-6.2%)* 01/19/2016 75 0.878 -0.5 -0.041 (-4.4%)* 0.022 (2.6%) 12/04/2012 72 0.856 -0.7 -0.063 (-6.8%)* -0.045 (-5.0%)* 01/19/2010 69 0.901 -0.3 -0.018 (-1.9%) -0.018 (-1.9%) 03/01/2004 63 0.918 -0.2 -- *Denotes significance at 95% confidence level, LSC for AP Spine = 0.022 g/cm2, LSC for Total Hip = 0.027 g/cm2 # Denotes dissimilar scan types or analysis methods Impression: The patient has low bone mass, based on the Left Femoral Neck T-score. The patient has an estimated ten-year risk of hip fracture of 2.5% and an estimated ten-year risk of major fracture of 10%, based on the WHO FRAX algorithm. No significant bone loss was observed. Discussion: BONE DENSITY IS LOW AT ONE OR MORE SKELETAL SITES. This patient's lowest T-score is low at one or more skeletal sites. It meets the World Health Organization's (WHO) criteria for low bone mass (T-score between -1.0 and -2.5). The patient's 10-year risk of fracture as calculated by FRAX is less than the threshold where pharmacological therapy is recommended by the National Osteoporosis Foundation (NOF). However, all treatment decisions require clinical judgment and consideration of individual patient factors, including patient preferences, comorbidities, previous drug use, risk factors not captured in the FRAX model (e.g., frailty, falls, vitamin D deficiency, increased bone turnover, interval significant decline in bone density) and possible under or overestimation of fracture risk by FRAX. The patient should follow a healthful lifestyle (good nutrition with adequate calcium and vitamin D, and appropriate weight-bearing exercise). Follow-Up: Consider repeating this study in 2 to 3 years to reassess this patient's status, or sooner if there is some new clinical indication. Reported by: MADONNA CLARK M.D. on 04/12/2023 12:50:00 PM.
== END ==
PROVIDERS: Referring Provider Internal Medicine; Visit Provider Internal Medicine
DX: Z78.0 Asymptomatic menopausal state (principal); M85.852 Other specified disorders of bone density and structure, left thigh
CPT/HCPCS: 77080